=== PATIENT | female | born 1965 | race Caucasian/White ===

== ENCOUNTER 2018-09-20 16:37 | Emergency (ER) | payer SELFPAY ==
[~2018-09-20] VITALS: Ht 157.5 cm; Wt 78.5 kg
[2018-09-20 16:44] VITALS: BP 166/105
--- NOTE | 2018-09-20 16:47 | NUR ---
pt triaged and sent to [facility]
--- NOTE | 2018-09-20 17:12 | NUR ---
Patient returned from XRAY, transferred to bed 10. RN evaluating patient at bedside.
--- NOTE | 2018-09-20 17:19 | NUR ---
pt c/o r knee pain x 2 weeks. 10/10 aching. no other complaints. + swelling. cms intact. hx: none meds:none
[2018-09-20] MEDS ORDERED: KETOROLAC 30 MG/ML VIAL IM ONE (19:05)
[2018-09-20] MEDS ORDERED: HYDROcodone/APAP 5/325 MG 1 TAB TAB PO ONE (19:10)
--- NOTE | 2018-09-20 19:16 | NUR ---
TWO 4 INCH KEELY WRAPS APPLIED TO PT R KNEE WITH FAMILY MEMBER PRESENT, CONFIRMED R KNEE BY PT AND ANDRES MARTINEZ. +CSM
--- NOTE | 2018-09-20 19:17 | NUR ---
GAVE REPORT TO MAXIMO CAMPOS
--- NOTE | 2018-09-20 19:17 | NUR ---
RECEIVED REPORT FROM MICHELLE CAMPOS. TRANSFER OF CARE AT THIS TIME.
--- NOTE | 2018-09-20 19:20 | NUR ---
PATIENT RESTING AT THIS TIME. NO SIGNS OF DISTRESS.
[2018-09-20 19:38] VITALS: BP 145/94
== END 2018-09-20 19:38 | disposition home or self-care (01) ==
LOC: MED 16:37
DX: M25.561 Pain in right knee (principal)
CPT/HCPCS: 73562; 96372; 99284; J1885